=== PATIENT | female | born 1990 | race Caucasian/White ===

== ENCOUNTER 2018-07-12 07:42 | Day surgery (SDC) | payer OTHER ==
[2018-07-09 11:12] VITALS: BMI 28.3
[2018-07-12] MEDS ORDERED: MIDAZOLAM HCL 2 MG/2 ML SINGLE DOSE VIAL ONE (08:46)
[2018-07-12] MEDS ORDERED: DESFLURANE GAS 240 ML BOTTLE IH ONE (08:58)
[2018-07-12] MEDS ORDERED: BUPIVACAINE HCL/PF 0.5% (5MG/ML) 10 ML VIAL ONE (09:18)
--- NOTE | 2018-07-12 09:32 | HP ---
Admitting History and Physical - Admission History of Present Illness: 28 yo with a history of 6 cm right ovarian mass and pelvic pain, desiring surgical management History Source: Patient Limitations to Obtaining History: No Limitations - Past Medical History Cardiovascular: No: HTN Pulmonary: Yes: Asthma Hepatobiliary: Yes: Other (Fatty s/p MRCP, Gastroscopy, Colonoscopy, Liver Biopsy) ...LMP: 06/15/18 ...: No Heme/Onc: No: Anemia Rheumatology: Yes: Other (MARTIN positive) - Past Surgical History Additional Past Surgical History: CD x 2 - Smoking History Smoking history: Never smoked Have you smoked in the past 12 months: No Aproximately how many cigarettes per day: 0 - Alcohol/Substance Use Hx Alcohol Use: Yes (2glasses wine/week) History of Substance Use: reports: None - Social History History of Recent Travel: No Home Medications - Allergies Allergies/Adverse Reactions: Allergies Allergy/AdvReac Type Severity Reaction Status Date / Time No Known Allergies Allergy Verified 07/09/18 11:15 - Home Medications Home Medications: Ambulatory Orders Ergocalciferol (Vitamin D2) [Vitamin D2] 50,000 unit PO WEEKLY 07/09/18 Ibuprofen [Motrin -] 600 mg PO QID #28 tablet 07/12/18 Oxycodone HCl/Acetaminophen [Percocet 5-325 mg Tablet] 1 tab PO Q6H #5 tablet MDD 4 07/12/18 Family Disease History - Family Disease History Family History: Denies Review of Systems - Review of Systems Constitutional: reports: No Symptoms Neck: reports: No Symptoms Cardiovascular: reports: No Symptoms Respiratory: reports: No Symptoms Musculoskeletal: reports: No Symptoms Integumentary: reports: No Symptoms Neurological: reports: No Symptoms Endocrine: reports: No Symptoms Physical Examination Vital Signs: Vital Signs Temperature 98.3 F 07/12/18 08:11 Pulse Rate 82 07/12/18 08:11 Respiratory Rate 20 07/12/18 08:11 Blood Pressure 137/89 07/12/18 08:11 O2 Sat by Pulse Oximetry (%) 98 07/12/18 08:11 Constitutional: Yes: Well Nourished, No Distress, Calm Cardiovascular: Yes: Regular Rate and Rhythm Respiratory: Yes: Regular, CTA Bilaterally Gastrointestinal: Yes: Normal Bowel Sounds, Soft Edema: No Integumentary: Yes: WNL ...Motor Strength: WNL Psychiatric: Yes: Alert, Oriented Assessment/Plan 28 yo with R adnexal mass, pelvic pain for R ovarian cystectomy, possible oophorectomy, possible left ovarian cystectomy and oophorectomy and all indicated procedures. 1. Consents reviewed and signed 2. Preop labs reviewed 3. SCDs for DVT PRophylaxis 4. Ancef accounting manager controller to OR 5. Will proceed to OR
[2018-07-12] MEDS ORDERED: PROPOFOL 20 ML ONE ×4 (09:36→09:37)
[2018-07-12] MEDS ORDERED: ROCURONIUM BROMIDE 50 MG/5 ML VIAL ONE ×3 (09:37)
[2018-07-12] MEDS ORDERED: KETOROLAC TROMETHAMINE 30 MG/1 ML VIAL ONE (09:38)
[2018-07-12] MEDS ORDERED: DEXAMETHASONE SOD PHOSPHATE 4 MG/1 ML VIAL ONE (09:38)
[2018-07-12] MEDS ORDERED: LIDOCAINE HCL/PF 2% SDV 5ML VIAL ONE (09:39)
[2018-07-12] MEDS ORDERED: ceFAZolin SODIUM 1 GM VIAL ONE (09:39)
[2018-07-12] MEDS ORDERED: ceFAZolin SODIUM 1 GM VIAL IVPB ONE (09:40)
[2018-07-12] MEDS ORDERED: BUPIVACAINE HCL/PF (5 MG/ML) 30 ML VIAL IJ ONE ×2 (10:30)
[2018-07-12] MEDS ORDERED: fentaNYL CITRATE 250 MCG/5 ML VIAL ONE (11:00)
[2018-07-12] MEDS ORDERED: NEOSTIGMINE METHYLSULFATE 0.5 MG/ML - 10 ML MDV ONE (11:23)
[2018-07-12] MEDS ORDERED: GLYCOPYRROLATE 0.2 MG/1 ML VIAL ONE ×2 (11:23)
[2018-07-12] MEDS ORDERED: PROMETHAZINE HCL 25 MG/1 ML VIAL IVPB PRN (11:44)
[2018-07-12] MEDS ORDERED: oxyCODONE HCL 5 MG TABLET PO PRN (11:44)
[2018-07-12] MEDS ORDERED: ONDANSETRON 4 MG/2 ML VIAL IVPUSH PRN (11:44)
[2018-07-12] MEDS ORDERED: LACTATED RINGERS SOLUTION 1,000 ML IV SCH (11:45)
--- NOTE | 2018-07-12 11:50 | OP ---
Operative Note - Note: Operative Date: 07/12/18 Pre-Operative Diagnosis: Pelvic pain, Right adnexal mass Operation: laparoscopic right ovarian cystectomy Findings: enlarged right ovary, multiloculated cyst, serous and mucinous component, normal Left ovary, normal appearing fallopian tubes bilaterally, normal appearing liver. Post-Operative Diagnosis: Same as Pre-op Surgeon: Bria Morel Fence Installer Foreman: Matty Verdugo Anesthesia: General Specimens Removed: pelvic washing, right ovarian cyst wall Estimated Blood Loss (mls): 5 Drains, Volume Out (mls): 150 (clear yellow urine) Fluid Volume Replaced (mls): 1,100 Operative Report Dictated: Yes
[2018-07-12] MEDS ORDERED: IBUPROFEN 400 MG TABLET (FP) PO PRN (11:56)
[2018-07-12] MEDS ORDERED: IBUPROFEN 800 MG/8 ML IJ IVPB PRN (11:56)
[2018-07-12] MEDS ORDERED: ONDANSETRON 4 MG/2 ML VIAL ONE (13:27)
[2018-07-12] MEDS ORDERED: ONDANSETRON 4 MG/2 ML VIAL IVPB ONE (13:30)
[2018-07-12] MEDS ORDERED: METOCLOPRAMIDE HCL INJECTION 10 MG/2 ML VIAL IVPB ONE (17:00)
[2018-07-12] MEDS ORDERED: METOCLOPRAMIDE HCL INJECTION 10 MG/2 ML VIAL ONE (17:05)
[2018-07-12 19:26] VITALS: BP 132/85; PULSE 75; TEMP 97.9
--- NOTE | 2018-07-13 10:45 | OP ---
DATE OF OPERATION: 07/12/2018 ATTENDING PHYSICIAN RESPONSIBLE TO SIGN REPORT: Bria Morel MD PREOPERATIVE DIAGNOSIS: Pelvic pain and right adnexal mass. POSTOPERATIVE DIAGNOSIS: Pelvic pain and right adnexal mass. SURGERY: Laparoscopic right ovarian cystectomy. SURGEON: Bria Morel MD DRESSMAKER HELPER: Matty Verdugo MD ANESTHESIOLOGIST: Clement Saha MD ANESTHESIA: General anesthesia. INDICATIONS: Patient is a 28-year-old with history of 6-cm right ovarian mass with pelvic pain, desiring surgical management. She was counseled regarding risks, benefits, alternatives, and complications of procedure including infection, bleeding damage to surrounding organs such as bowel, bladder, need for conversion to laparotomy, removal of the cyst or ovary if a contralateral ovary and oophorectomy. She expressed understanding and was brought to the operating room. DESCRIPTION OF PROCEDURE: When anesthesia was found to be adequate, patient was prepped and draped in a normal sterile fashion, placed in dorsal lithotomy position using Shawn stirrups. An open-sided speculum was placed in the patients vagina. Anterior lip of the cervix was grasped using an Allis clamp, and a HUMI uterine manipulator was placed in the uterus. A Kaplan was placed to gravity. Attention was brought to the abdomen. A 5-mm incision was made in the umbilicus, and a 5-mm 0-degree laparoscope was placed under direct visualization using a Visiport. The anterior peritoneal placement was confirmed. The abdomen was then insufflated with carbon dioxide gas to an operating pressure of 18 mmHg. Evaluation of the abdominal cavity revealed an enlarged right ovary and normal appearing liver, no perihepatic adhesions. The left ovary was found to be normal appearing, and fallopian tubes bilaterally were found to be normal appearing. A 5-mm trocar was placed in the right lower quadrant. An 11-mm trocar was placed in left lower quadrant. The right ovarian cyst was identified, and it was dissected. The cyst was noted to be multiloculated with serous and mucinous components given adhesions of the ovarian cyst wall to the ovarian tissue. Decision was made to excise the cyst wall using the sonic incision electrocautery. All specimens were placed in an EndoCatch bag and were removed from the abdomen without issue. Hemostasis was noted from the ovarian bed. Surgicel was placed on the ovarian bed and the ovary, and copious irrigation was performed. Good hemostasis was noted. The left lower quadrant 11-mm incision was closed using Satish-Santos closure device with 0 Vicryl. Pneumoperitoneum was released. All instruments and trocars were removed from the patients abdomen. Skin was closed using 4-0 Biosyn in interrupted fashion. The patient was awoken from anesthesia and brought to the recovery room in stable condition. Omar [id number] MTDD
--- NOTE | 2018-07-15 10:03 | PATH ---
Surgical Pathology Report Patient Name: AUGIE BURGESS [facility]. Rec. #: [id number] /Age/Gender: 1990 (Age: 28) / F Account: [id number] Location: [facility] Taken: 07/12/2018 Received: 07/12/2018 Reported: 07/15/2018 Physicians: Bria Morel Specimen(s) Received OVARIAN CYST WALL Clinical History Cyst Final Diagnosis CYST WALL, RIGHT OVARY, CYSTECTOMY: MUCINOUS CYSTADENOMA. Electronically Signed Chloé Montero M.D. Gross Description Received in formalin, labeled "right ovarian cyst wall" are two portions of pink-vitale cystic appearing tissue measuring 3.5 x 2 x 0.2 cm and 5 x 2.5 x 0.8 cm. The cystic tissue appears smooth with no papillary projections or nodularities. Explosive Ordnance Disposal Technician sections are submitted in three cassettes. AE/07/13/2018 ebram/07/13/2018
== END 2018-07-12 18:50 | disposition home or self-care (01) ==
LOC: JASU-SURG 07:42
PROVIDERS: ATTEND Obstetrics & Gynecology
PROC: 0UB04ZZ Excision of Right Ovary, Percutaneous Endoscopic Approach (ICD-10-PCS; principal; 2018-07-12 09:00)
DX: D27.0 Benign neoplasm of right ovary (principal); R10.2 Pelvic and perineal pain
CPT/HCPCS: 36415; 84703; 86850; 86900; 86901; 94760

== ENCOUNTER 2022-03-03 04:05 | Day surgery (SDC) | payer OTHER ==
[2022-01-30 17:20] VITALS: BMI 30.8
[~2022-03-03 04:05] MED LIST: BUPIVACAINE HCL/PF 0.5% (5 MG/ML) 30 ML VIAL IJ ONE
[2022-03-03] MEDS ORDERED: SCOPOLAMINE HYDROBROMIDE 1 PATCH PATCH.TD72 ONE (07:26)
[2022-03-03] MEDS ORDERED: BUPIVACAINE HCL/PF 0.5% (5MG/ML) 10 ML VIAL ONE (07:32)
[2022-03-03] MEDS ORDERED: MIDAZOLAM HCL 2 MG/2 ML SINGLE DOSE VIAL ONE (07:37)
[2022-03-03] MEDS ORDERED: PROPOFOL 20 ML ONE ×3 (07:37→09:04)
[2022-03-03] MEDS ORDERED: ROCURONIUM BROMIDE 50 MG/5 ML SYRINGE ONE (07:37)
[2022-03-03] MEDS ORDERED: LIDOCAINE HCL/PF 2% SDV 5ML VIAL ONE ×2 (07:38→09:28)
[2022-03-03] MEDS ORDERED: ONDANSETRON 4 MG/2 ML VIAL ONE ×2 (08:00→12:25)
[2022-03-03] MEDS ORDERED: METOPROLOL TARTRATE 5 MG/5 ML VIAL ONE (08:28)
[2022-03-03] MEDS ORDERED: BUPIVACAINE HCL/PF 0.5% (5 MG/ML) 30 ML VIAL IJ ONE ×2 (08:42→09:12)
[2022-03-03] MEDS ORDERED: KETOROLAC TROMETHAMINE 30 MG/1 ML VIAL ONE (08:44)
[2022-03-03] MEDS ORDERED: ceFAZolin SODIUM 1 GM VIAL IVPB ONE (08:45)
[2022-03-03] MEDS ORDERED: GLYCOPYRROLATE 0.2 MG/1 ML VIAL ONE (08:46)
[2022-03-03] MEDS ORDERED: NEOSTIGMINE METHYLSULFATE 0.5 MG/ML - 10 ML MDV ONE (08:47)
[2022-03-03] MEDS ORDERED: ceFAZolin SODIUM 1 GM VIAL ONE (08:49)
[2022-03-03] MEDS ORDERED: SODIUM CHLORIDE 0.9% P/F 10 ML VIAL IJ ONE (08:49)
[2022-03-03] MEDS ORDERED: hydrALAZINE HCL 20 MG/ML VIAL ONE (08:58)
[2022-03-03] MEDS ORDERED: PROMETHAZINE HCL 25 MG/1 ML VIAL IVPUSH PRN (09:37)
[2022-03-03] MEDS ORDERED: ONDANSETRON 4 MG/2 ML VIAL IVPUSH PRN (09:37)
[2022-03-03] MEDS ORDERED: oxyCODONE HCL 5 MG TABLET PO PRN (09:37)
[2022-03-03] MEDS ORDERED: ACETAMINOPHEN 1000 MG/100 ML BAG IVPB ONE (09:39)
[2022-03-03] MEDS ORDERED: ACETAMINOPHEN INJECTION 100 ML IVPB ONE (09:40)
[2022-03-03] MEDS ORDERED: LACTATED RINGERS SOLUTION 1,000 ML IV SCH (09:45)
[2022-03-03] MEDS ORDERED: oxyCODONE HCL 5 MG TABLET ONE (10:27)
[2022-03-03 11:11] VITALS: RESP 20
[2022-03-03 17:16] VITALS: BP 133/70; PULSE 84; TEMP 97.5
== END 2022-03-03 16:35 | disposition home or self-care (01) ==
LOC: JASU-SURG 04:05
PROVIDERS: ATTEND Obstetrics & Gynecology
PROC: 0UB04ZZ Excision of Right Ovary, Percutaneous Endoscopic Approach (ICD-10-PCS; principal; 2022-03-03 07:30)
DX: D27.0 Benign neoplasm of right ovary (principal)
CPT/HCPCS: 81025; 88307-TC; 94760